=== PATIENT | male | born 1975 | race Caucasian/White ===

== ENCOUNTER 2017-05-17 12:19 | Emergency (ER) | payer OTHER ==
[~2017-05-17] VITALS: Ht 162.6 cm; Wt 89.1 kg
[2017-05-17] MEDS ORDERED: ASPI1TAB PO (12:39)
[2017-05-17] MEDS ORDERED: PRED20TA PO (14:55)
[2017-05-17] MEDS ORDERED: CYCL5TAB PO (14:55)
[2017-05-17 15:08] VITALS: BP 144/99
== END 2017-05-17 15:09 | disposition home or self-care (01) ==
LOC: M ED 12:19
DX: S16.1XXA Strain of muscle, fascia and tendon at neck level, initial encounter (principal); X58.XXXA Exposure to other specified factors, initial encounter; Y92.89 Other specified places as the place of occurrence of the external cause; Y93.89 Activity, other specified; Y99.8 Other external cause status; Z79.899 Other long term (current) drug therapy; Z88.8 Allergy status to other drugs, medicaments and biological substances

== ENCOUNTER 2018-11-13 12:45 | Emergency (ER) | payer OTHER ==
[~2018-11-13] VITALS: Ht 162.6 cm; Wt 91.9 kg
[~2018-11-13 12:45] MED LIST: ASPI81TA26 PO; CYCL5TAB PO; ERYTOIN8 OS; LIDO1SOL8 PO; PRED20TA PO
[2018-11-13] MEDS ORDERED: NS 1,000 ML IV ONE (13:15)
[2018-11-13 13:45] LABS: BASO # 0.1 10^3/uL (0.0-0.2); BASO % 0.5 % (0.0-1.0); EOS # 0.1 10^3/uL (0.0-0.50); EOS % 0.5 % (0.0-3.0); HEMOGLOBIN 15.7 g/dl (13.5-17.5); LYMPH # 1.7 10^3/uL (1.5-4.5); LYMPH % 18.2 % (24.0-44.0); MEAN CORPUSCULAR HEMOGLOBIN 30.4 pg (27.0-33.0); MEAN CORPUSCULAR HGB CONC 34.1 g/dl (32.0-36.5); MONO # 0.9 10^3/uL (0.0-0.8); MONO % 9.1 % (0.0-5.0); NEUTROPHILS # 6.7 10^3/uL (1.8-7.7); NEUTROPHILS % 71.3 % (36.0-66.0); PLATELET COUNT, AUTOMATED 299 10^3/uL (150-450); RED BLOOD COUNT 5.17 10^6/uL (4.30-6.10); WHITE BLOOD COUNT 9.4 10^3/uL (4.0-10.0)
[2018-11-13 13:54] LABS: INR 0.93; PARTIAL THROMBOPLASTIN TIME 28.4 SECONDS (25.4-37.6); PROTHROMBIN TIME 12.6 SECONDS (12.1-14.4)
[2018-11-13 14:12] LABS: ALBUMIN 3.8 GM/DL (3.2-5.2); ALT/SGPT 69 U/L (12-78); BILIRUBIN,DIRECT 0.2 MG/DL (0.0-0.2); BILIRUBIN,TOTAL 0.6 MG/DL (0.2-1.0); BLOOD UREA NITROGEN 15 MG/DL (7-18); CALCIUM LEVEL 9.1 MG/DL (8.5-10.1); CARBON DIOXIDE LEVEL 27 MEQ/L (21-32); CHLORIDE LEVEL 105 MEQ/L (98-107); CPK CREATINE PHOSPHOKINASE 167 U/L (39-308); CREATININE FOR GFR 1.07 MG/DL (0.70-1.30); GLOMERULAR FILTRATION RATE > 60.0 (>60); GLUCOSE, FASTING 119 MG/DL (70-100); LIPASE 117 U/L (73-393); MB/CK RELATIVE INDEX 1.02 (< OR =4); POTASSIUM SERUM 4.3 MEQ/L (3.5-5.1); SODIUM LEVEL 138 MEQ/L (136-145); TOTAL PROTEIN 7.7 GM/DL (6.4-8.2); TROPONIN I < 0.02 NG/ML (< 0.10)
--- NOTE | 2018-11-13 14:14 | REP ---
CT ABDOMEN AND PELVIS WITHOUT IV OR ORAL CONTRAST: HISTORY: Lower abdomen pain. Icterus. FINDINGS: Preliminary digital movie projectionist radiograph shows an unremarkable bowel gas pattern. The lung bases are clear. The liver and the spleen are normal in size, homogeneous in texture. No focal liver lesion is seen. No adrenal lesion is observed. The gallbladder and the pancreas are unremarkable. There is no evidence of hydronephrosis or intrarenal calculus on either side. A normal appendix is seen in the right midabdomen retrocecal. There is mild left colonic diverticulosis. There is no CT evidence of diverticulitis. Small and large bowel loops are otherwise unremarkable. There is a mildly prominent prostate containing some dystrophic calcifications. Seminal vesicles and urinary bladder are unremarkable. No abdominal wall defect is seen. No bony destructive lesion is appreciated. IMPRESSION: Left colonic diverticulosis. No CT evidence of diverticulitis. Otherwise unremarkable CT study of the abdomen and pelvis without contrast. Electronically Signed by Lui Villafana MD 11/13/2018 02:46 P
[2018-11-13 15:32] VITALS: BP 138/96
--- NOTE | 2018-11-14 05:50 | ECGEPIP ---
Stationary ECG Study [facility] - ED Test Date: 2018-11-13 Pat Name: TUCKER RASHEED Department: Room: - Gender: M Manager Performance: : 1975 Requested By: KIMBERLY Petty PA-C Order Number: [id number] Reading MD: Ajay Mustafa Measurements Intervals [place] Rate: 86 P: 21 NV: 160 QRS: 56 QRSD: 85 T: 34 QT: 331 QTc: 397 Interpretive Statements SINUS RHYTHM POSSIBLE LEFT ATRIAL ENLARGEMENT NSTTW ABNORMALITIES NO PRIORS FOR COMPARISON Electronically Signed On 11-14-2018 5:50:15 EDT by Ajay Mustafa
[2018-11-14 09:55] LABS: HEPATITIS B SURFACE ANTIGEN NEGATIVE (NEGATIVE)
[2018-11-14 10:22] LABS: HEPATITIS B CORE ANTIBODY IGM NEGATIVE (NEGATIVE); HEPATITIS C VIRUS ABY INDEX < 0.0 INDEX (<0.8)
[2018-11-14 10:25] LABS: HEPATITIS A ANTIBODY IGM NEGATIVE (NEGATIVE)
== END 2018-11-13 15:33 | disposition home or self-care (01) ==
LOC: M ED 12:45
DX: H15.89 Other disorders of sclera (principal); H11.30 Conjunctival hemorrhage, unspecified eye; K57.30 Diverticulosis of large intestine without perforation or abscess without bleeding; F10.10 Alcohol abuse, uncomplicated; R10.30 Lower abdominal pain, unspecified; M50.30 Other cervical disc degeneration, unspecified cervical region; Z87.891 Personal history of nicotine dependence; Z91.89 Other specified personal risk factors, not elsewhere classified

== ENCOUNTER → 2023-12-03 | Outpatient (CLI) | payer BC ==
[~2023-12-03] MED LIST changes: +LIDO15SO8 PO; -LIDO1SOL8 PO
[2023-12-03 13:07] LABS: BASO % 0.4 % (0.0-1.0); EOS # 0.1 10^3/uL (0.0-0.5); EOS % 0.8 % (0.0-3.0); HEMATOCRIT 45.3 % (42.0-52.0); HEMOGLOBIN 15.1 g/dl (13.5-17.5); LYMPH % 19.7 % (24.0-44.0); MEAN CORPUSCULAR HEMOGLOBIN 29.4 pg (27.0-33.0); MEAN CORPUSCULAR HGB CONC 33.3 g/dl (32.0-36.5); MEAN CORPUSCULAR VOLUME 88.3 fl (80.0-96.0); MONO # 0.8 10^3/uL (0.0-0.8); MONO % 8.2 % (2.0-8.0); NEUTROPHILS % 70.6 % (36.0-66.0); PLATELET COUNT, AUTOMATED 295 10^3/uL (150-450); RED BLOOD COUNT 5.13 10^6/uL (4.30-6.10); WHITE BLOOD COUNT 9.9 10^3/uL (4.0-10.0)
[2023-12-03 13:27] LABS: HEMOGLOBIN A1c 6.3 % (4.0-6.0)
[2023-12-03 13:34] LABS: ALBUMIN 3.8 G/DL (3.2-5.2); ALKALINE PHOSPHATASE 91 U/L (46-116); ALT/SGPT 42 U/L (7.0-40); AST/SGOT 17 U/L (<34); BILIRUBIN,TOTAL 0.8 MG/DL (0.3-1.2); BLOOD UREA NITROGEN 16 MG/DL (9-23); CALCIUM LEVEL 8.9 MG/DL (8.5-10.1); CARBON DIOXIDE LEVEL 26 MMOL/L (20-31); CHLORIDE LEVEL 106 MMOL/L (98-107); CREATININE FOR GFR 0.93 MG/DL (0.70-1.30); GLOMERULAR FILTRATION RATE > 60.0 (>60); GLUCOSE, FASTING 120 MG/DL (60-100); POTASSIUM SERUM 4.5 MMOL/L (3.5-5.1); SODIUM LEVEL 138 MMOL/L (136-145); TOTAL PROTEIN 6.8 G/DL (5.7-8.2)
== END ==
LOC: M EKG 12:17
PROVIDERS: ATTEND Family Medicine
DX: Z01.818 Encounter for other preprocedural examination (principal)

== ENCOUNTER 2024-01-13 08:08 | Day surgery (SDC) | payer BC ==
[~2024-01-13] VITALS: Ht 152.4 cm; Wt 92.5 kg
[~2024-01-13 08:08] MED LIST changes: +IBUP-1114 PO; +PHENYLEPHRINE 10% OPHTH SOL 5ML OD PRN
[2024-01-13] MEDS: OFLOXACIN 0.3 % (OCUFLOX) OPTH SOL 5ML OD ONE (08:30)
[2024-01-13] MEDS: ATROPINE SULFATE 1% OPHTH SOLN 2ML BTL OD SCH (08:35)
[2024-01-13] MEDS: TROPICAMIDE 1% OPHTH SOLN 15ML OD SCH (08:35)
[2024-01-13] MEDS: PHENYLEPHRINE 2.5% OPHTH SOL 2ML OD SCH (08:35)
[2024-01-13] MEDS: LIDOCAINE 3.5 % 1ML OPHTH TOPICAL GEL OU ONE (08:35)
[2024-01-13] MEDS ORDERED: fentaNYL 100 MCG/2 ML INJECTION As Ordered ONE (09:27)
[2024-01-13] MEDS ORDERED: MIDAZOLAM INJ 2MG/2ML VIAL As Ordered ONE (09:27)
[2024-01-13] MEDS: LIDOCAINE 1% SDV 5ML VIAL As Ordered ONE (09:37)
[2024-01-13] MEDS: CEFUROXIME 1MG/0.1ML INTRACAMERAL INJ As Ordered ONE (09:37)
[2024-01-13] MEDS: BSS IRRIG/VANCO(10MG)/TOBRA(5MG)/EPINEPH(1:1000-0.5CC)500ML BAG-ORONLY As Ordered ONE (09:37)
[2024-01-13 09:55] VITALS: BP 128/80; TEMP 98.2; O2SAT 98
== END 2024-01-13 10:10 | disposition home or self-care (01) ==
LOC: M SDC 08:08
PROVIDERS: ATTEND Ophthalmology
DX: H25.11 Age-related nuclear cataract, right eye (principal); H21.2 Degeneration of iris and ciliary body; Z87.891 Personal history of nicotine dependence
CPT/HCPCS: 66982; 92015; J0697; J2250; J3010; V2632

== ENCOUNTER 2024-01-20 09:37 | Day surgery (SDC) | payer BC ==
[~2024-01-20] VITALS: Ht 162.6 cm; Wt 92.9 kg
[~2024-01-20 09:37] MED LIST changes: +MIDAZOLAM INJ 2MG/2ML VIAL As Ordered ONE; -PHENYLEPHRINE 10% OPHTH SOL 5ML OD PRN; +PHENYLEPHRINE 10% OPHTH SOL 5ML OS PRN; +fentaNYL 100 MCG/2 ML INJECTION As Ordered ONE
[2024-01-20] MEDS: OFLOXACIN 0.3 % (OCUFLOX) OPTH SOL 5ML OS ONE (10:23)
[2024-01-20] MEDS: LIDOCAINE 3.5 % 1ML OPHTH TOPICAL GEL OU ONE (10:23)
[2024-01-20] MEDS: TROPICAMIDE 1% OPHTH SOLN 15ML OS SCH (10:24)
[2024-01-20] MEDS: PHENYLEPHRINE 2.5% OPHTH SOL 2ML OS SCH (10:24)
[2024-01-20] MEDS: ATROPINE SULFATE 1% OPHTH SOLN 2ML BTL OS SCH (10:24)
[2024-01-20] MEDS: LIDOCAINE 1% SDV 5ML VIAL As Ordered ONE (10:57)
[2024-01-20] MEDS: BSS IRRIG/VANCO(10MG)/TOBRA(5MG)/EPINEPH(1:1000-0.5CC)500ML BAG-ORONLY As Ordered ONE (10:57)
[2024-01-20] MEDS: CEFUROXIME 1MG/0.1ML INTRACAMERAL INJ As Ordered ONE (10:58)
[2024-01-20 11:12] VITALS: BP 143/90; TEMP 97; O2SAT 98
== END 2024-01-20 11:40 | disposition home or self-care (01) ==
LOC: M SDC 09:37
PROVIDERS: ATTEND Ophthalmology
DX: H25.12 Age-related nuclear cataract, left eye (principal); R73.03 Prediabetes; Z87.891 Personal history of nicotine dependence; Z88.6 Allergy status to analgesic agent; Z88.8 Allergy status to other drugs, medicaments and biological substances
CPT/HCPCS: 66984; 92015; J0697; J2250; J3010; V2632

== ENCOUNTER 2024-04-04 10:54 | Day surgery (SDC) | payer BC ==
[~2024-04-04] VITALS: Ht 162.6 cm; Wt 93.2 kg
[~2024-04-04 10:54] MED LIST changes: -MIDAZOLAM INJ 2MG/2ML VIAL As Ordered ONE; -PHENYLEPHRINE 10% OPHTH SOL 5ML OS PRN; -fentaNYL 100 MCG/2 ML INJECTION As Ordered ONE
[2024-04-04] MEDS: NS 1,000 ML IV ONE (11:05)
[2024-04-04] MEDS ORDERED: LIDOCAINE 2% 100MG/5ML SDV (FOR ANES.) As Ordered ONE (12:23)
[2024-04-04] MEDS ORDERED: propofoL 200 MG/20 ML VIAL As Ordered ONE (12:23)
[2024-04-04 12:34] VITALS: TEMP 97.5
[2024-04-04 12:49] VITALS: BP 141/95; O2SAT 97
== END 2024-04-04 12:49 | disposition home or self-care (01) ==
LOC: M OPP 10:54
PROVIDERS: ATTEND Surgery
DX: Z12.11 Encounter for screening for malignant neoplasm of colon (principal); Z12.12 Encounter for screening for malignant neoplasm of rectum; K57.30 Diverticulosis of large intestine without perforation or abscess without bleeding; Z87.19 Personal history of other diseases of the digestive system; R73.03 Prediabetes; Z88.6 Allergy status to analgesic agent; Z91.041 Radiographic dye allergy status

== ENCOUNTER → 2024-04-05 | Outpatient (CLI) | payer BC ==
[2024-04-05 10:11] LABS: BASO % 0.5 % (0.0-1.0); EOS # 0.1 10^3/uL (0.0-0.5); EOS % 0.8 % (0.0-3.0); LYMPH # 1.4 10^3/uL (1.5-5.0); LYMPH % 17.8 % (24.0-44.0); MEAN CORPUSCULAR HEMOGLOBIN 29.3 pg (27.0-33.0); MEAN CORPUSCULAR HGB CONC 33.3 g/dl (32.0-36.5); MEAN CORPUSCULAR VOLUME 87.9 fl (80.0-96.0); MONO # 0.7 10^3/uL (0.0-0.8); MONO % 9.3 % (2.0-8.0); NEUTROPHILS # 5.7 10^3/uL (1.5-8.5); NEUTROPHILS % 71.2 % (36.0-66.0); PLATELET COUNT, AUTOMATED 334 10^3/uL (150-450); RED BLOOD COUNT 5.12 10^6/uL (4.30-6.10)
[2024-04-05 10:29] LABS: BLOOD UREA NITROGEN 17 MG/DL (9-23); CALCIUM LEVEL 9.8 MG/DL (8.5-10.1); CARBON DIOXIDE LEVEL 27 MMOL/L (20-31); CHLORIDE LEVEL 104 MMOL/L (98-107); CREATININE FOR GFR 1.02 MG/DL (0.70-1.30); GLOMERULAR FILTRATION RATE > 60.0 (>60); GLUCOSE, FASTING 133 MG/DL (60-100); POTASSIUM SERUM 4.6 MMOL/L (3.5-5.1); SODIUM LEVEL 138 MMOL/L (136-145)
[2024-04-05 10:39] LABS: INR 1.08; PARTIAL THROMBOPLASTIN TIME 29.3 SECONDS (24.8-34.2); PROTHROMBIN TIME 13.7 SECONDS (12.5-14.5)
== END ==
LOC: M LAB 09:07
PROVIDERS: ATTEND Orthopaedic Surgery
DX: Z01.818 Encounter for other preprocedural examination (principal)

== ENCOUNTER → 2024-05-22 | Outpatient (CLI) | payer BC ==
[~2024-05-22] MED LIST changes: -CYCL5TAB PO; +CYCL5TAB4 PO
[2024-05-22 09:54] LABS: BASO # 0.1 10^3/uL (0.0-0.2); BASO % 0.7 % (0.0-1.0); EOS # 0.2 10^3/uL (0.0-0.5); EOS % 2.2 % (0.0-3.0); HEMATOCRIT 44.2 % (42.0-52.0); HEMOGLOBIN 14.6 g/dl (13.5-17.5); LYMPH # 1.7 10^3/uL (1.5-5.0); LYMPH % 23.4 % (24.0-44.0); MEAN CORPUSCULAR HEMOGLOBIN 29.5 pg (27.0-33.0); MEAN CORPUSCULAR VOLUME 89.3 fl (80.0-96.0); MONO # 0.8 10^3/uL (0.0-0.8); MONO % 10.3 % (2.0-8.0); NEUTROPHILS # 4.7 10^3/uL (1.5-8.5); NEUTROPHILS % 63.3 % (36.0-66.0); PLATELET COUNT, AUTOMATED 319 10^3/uL (150-450); RED BLOOD COUNT 4.95 10^6/uL (4.30-6.10); WHITE BLOOD COUNT 7.4 10^3/uL (4.0-10.0)
[2024-05-22 10:14] LABS: INR 0.96; PARTIAL THROMBOPLASTIN TIME 27.3 SECONDS (24.8-34.2)
[2024-05-22 10:30] LABS: ALBUMIN 3.8 G/DL (3.2-5.2); ALKALINE PHOSPHATASE 83 U/L (40-129); ALT/SGPT 54 U/L (7.0-40); AST/SGOT 20 U/L (<34); BILIRUBIN,TOTAL 0.5 MG/DL (0.3-1.2); BLOOD UREA NITROGEN 17 MG/DL (9-23); CALCIUM LEVEL 9.5 MG/DL (8.5-10.1); CARBON DIOXIDE LEVEL 29 MMOL/L (20-31); CHLORIDE LEVEL 105 MMOL/L (98-107); CREATININE FOR GFR 0.96 MG/DL (0.70-1.30); GLOMERULAR FILTRATION RATE > 60.0 (>60); GLUCOSE, FASTING 127 MG/DL (60-100); HEMOGLOBIN A1c 6.4 % (4.0-6.0); POTASSIUM SERUM 5.2 MMOL/L (3.5-5.1); SODIUM LEVEL 140 MMOL/L (136-145); TOTAL PROTEIN 7.1 G/DL (5.7-8.2)
== END ==
LOC: M LAB 08:21
PROVIDERS: ATTEND Family Medicine
DX: Z13.1 Encounter for screening for diabetes mellitus (principal)